=== PATIENT | female | born 1960 | race Caucasian/White ===

== ENCOUNTER 2017-08-26 10:21 | Observation (INO) ==
--- NOTE | 2017-08-26 10:49 | Emergency Department Note ---
Disposition Clinical Impression: Abdominal pain Qualifiers: Abdominal location: generalized Qualified Code(s): R10.84 - Generalized abdominal pain Disposition: Admitted As Inpatient Condition: Fair Abdominal Pain HPI - General Chief Complaint: ED Abdominal Pain Stated Complaint: ABD Pain N/V/D Time Seen by Provider: 08/26/17 10:32 Source: patient Mode of arrival: ambulatory Limitations: no limitations Nursing Notes Reviewed: Yes Vital Signs Reviewed: Yes - History of Present Illness HPI Narrative: 56-year-old who comes in complaining of generalized abdominal pain that seems to be getting worse. Patient was seen at outside facility on was diagnosed with diverticular disease and started on Cipro and Flagyl. Patient states she is not getting any better. Pt Subjective Complaint: abdominal pain Onset (ago): day(s) (Several) Consistency: constant Location: diffuse Pain Scale: 4 Quality: cramping Radiation: none Migration to: suprapubic Improves with: nothing Worsens with: nothing Associated symptoms: Reports: nausea, vomiting Treatments prior to arrival: other (Antibiotics) - Related Data Home Medications Medication Instructions Recorded Confirmed Aspirin [Lo-Dose Aspirin EC] 81 mg PO DAILY 08/22/17 08/26/17 Atorvastatin [Lipitor] 40 mg PO HS 08/22/17 08/26/17 Lisinopril [Zestril] 10 mg PO DAILY 08/22/17 08/26/17 Nicotine [Nicotine Patch] 1 patch TD DAILY 08/26/17 08/26/17 Previous Rx's Medication Instructions Recorded Ciprofloxacin [Cipro] 750 mg PO BID #20 tablet 08/22/17 HYDROcodone/Acet 10/325 mg [[place] 1 tab PO Q6HR PRN 3 Days #10 tab 08/22/17 10-325 mg] MetroNIDAZOLE [Flagyl] 500 mg PO QID #40 capsule 08/22/17 Ondansetron ODT [Zofran ODT] 4 mg PO Q8HR #14 tab.rapdis 08/22/17 Allergies Allergy/AdvReac Type Severity Reaction Status Date / Time codeine Allergy Hives Verified 08/26/17 13:51 Constitutional: Denies: fever, chills, weakness, weight change Eyes: Denies: eye pain, eye discharge, vision change ENT ED: Denies: ear pain, throat pain, dental pain, hearing loss, epistaxis, congestion, dysphagia Cardiovascular: Denies: chest pain, palpitations, dyspnea on exertion, edema, syncope Respiratory: Denies: cough, dyspnea, wheezes, hemoptysis, stridor Gastrointestinal: Reports: abdominal pain. Denies: nausea, vomiting, diarrhea, constipation, hematemesis, melena, hematochezia Genitourinary: Denies: dysuria, frequency, hematuria, discharge Musculoskeletal: Denies: back pain, neck pain, arthralgia, myalgia Integumentary: Denies: rash, abrasion, lesions Neurological: Denies: headache, weakness, numbness, paresthesias, confusion, abnormal gait, vertigo Psychiatric: Denies: anxiety, depression, suicidal thoughts, homicidal thoughts , auditory hallucinations, visual hallucinations Endocrine: Denies: fatigue Hematological/Lymphatic: Denies: easy bleeding, easy bruising Allergic/Immunologic: Denies: facial swelling, urticaria Abdominal Pain PMH - Past Medical History Medical history: Reports: hyperlipidemia, hypertension Female Surgical History: Reports: breast surgery, hysterectomy, sinus surgery, other Psychiatric history: Reports: no psych history - Social History Smoking status: Current every day smoker Alcohol use: Reports: none Drug use: Reports: none Physical Exam - General Limitations: no limitations General appearance: alert, in no apparent distress - Head Head exam: atraumatic, normocephalic, normal inspection - Eye Eye exam: Present: normal appearance, PERRL, EOMI - ENT ENT exam: normal exam, normal oropharynx, mucous membranes moist - Neck Neck exam: Present: normal inspection, full ROM, trachea midline - Chest Chest inspection: Present: normal inspection, symmetric chest wall rise - Respiratory Respiratory exam: Present: normal lung sounds bilaterally - Cardiovascular Cardiovascular exam: Present: regular rate, normal rhythm, normal heart sounds - Abdominal Exam Abdominal exam: Present: soft, tenderness. Absent: guarding, rebound Abdominal tenderness: Present: diffuse - Extremities Exam Extremities exam: Present: normal inspection, full ROM. Absent: tenderness, pedal edema - Expanded Lower Extremity Exam Neurovascular/Tendon exam: Absent: motor deficit, sensory deficit, tendon deficit Gait: observed and normal - Back Exam Back exam: Present: normal inspection, full ROM. Absent: tenderness - Neurological Exam Neurological exam: Present: alert, oriented X3 - Psychiatric Psychiatric exam: Present: normal affect, normal mood - Skin Skin exam: Present: warm, dry, intact, normal color Course Vital Signs Temperature 97.5 F L 03/12/18 10:23 Pulse Rate 89 08/26/17 10:23 Respiratory Rate 18 08/26/17 10:23 Blood Pressure 153/85 08/26/17 10:23 O2 Sat by Pulse Oximetry 97 08/26/17 10:23 Temperature 98.1 F 08/26/17 18:57 Pulse Rate 63 08/26/17 18:57 Respiratory Rate 14 08/26/17 18:57 Blood Pressure 122/76 08/26/17 18:57 O2 Sat by Pulse Oximetry 98 08/26/17 18:57 Oxygen Delivery Oxygen Delivery Room Air Abdominal Pain - Lab Data Lab results reviewed: Yes I reviewed the patient's lab results. Result diagrams: 08/26/17 11:00 08/26/17 11:00 Lab Results 08/26/17 08/26/17 08/26/17 Range/Units 11:00 11:00 11:00 WBC 11.9 H (4.3-11.1) K/mcL RBC 5.40 H (3.82-4.97) M/mcL Hgb 15.0 (11.5-15.4) g/dL Hct 46.7 H (35.3-44.9) % MCV 86.5 (83.0-100.0) fL MCH 27.8 L (28.0-33.3) pg MCHC 32.1 (31.6-35.5) g/dL RDW 13.9 (11.5-14.5) % Plt Count 311 (140-400) K/mcL MPV 8.9 L (9.4-12.4) fL Immature Gran % 0.3 (0-4) % Seg Neutrophils % 74.2 % Lymphocytes % 20.6 % Monocytes % 4.0 % Eosinophils % 0.6 % Basophils % 0.3 % Neutrophils # 8.8 (1.6-8.9) K/mcL Lymphocytes # 2.4 (0.6-4.6) K/mcL Monocytes # 0.5 (0.0-1.3) K/mcL Eosinophils # 0.1 (0.0-0.6) K/mcL Basophils # 0.0 (0.0-0.2) K/mcL Sodium 140 (136-145) mEq/L Potassium 3.8 (3.5-5.1) mEq/L Chloride 108 H (98-107) mEq/L Carbon Dioxide 24 (23-29) mEq/L BUN 10 (6-20) mg/dL Creatinine 0.59 L (0.60-1.20) mg/dL Est GFR ( Amer) > 60 (> 60) Est GFR (Non-Af Amer) > 60 (> 60) BUN/Creatinine Ratio 17 (6-26) Glucose 104 (70-105) mg/dL Calculated Osmolality 289 (280-300) Lactic Acid 0.9 (0.5-2.2) mmol/L Calcium 10.1 (8.6-10.3) mg/dL Total Bilirubin 0.3 (0.3-1.0) mg/dL Direct Bilirubin 0.1 (0.0-0.2) mg/dL Indirect Bilirubin 0.2 (0.0-1.2) mg/dL AST 24 (13-39) Units/L ALT 11 (7-52) Units/L Alkaline Phosphatase 85 (34-104) Units/L Serum Total Protein 7.5 (6.4-8.9) g/dL Albumin 4.9 (3.5-5.7) g/dL Globulin 2.6 (2.4-3.5) g/dL Albumin/Globulin Ratio 1.9 (1.1-2.2) Amylase 48 (29-103) Units/L Lipase 26 (11-82) Units/L Urine Color (Yellow) Urine Clarity (Clear) Urine pH (5.0-8.0) pH Units Ur Specific [place] (1.010-1.025) Urine Protein (Neg-Trace) mg/dL Urine Glucose (UA) (Normal) mg/dL Urine Ketones (Negative) mg/dL Urine Blood (Negative) Urine Nitrite (Negative) Urine Bilirubin (Negative) Urine Urobilinogen (Normal) mg/dL Ur Leukocyte Esterase (Negative) Ur Culture Indicated? (NO) 08/26/17 Range/Units 11:15 WBC (4.3-11.1) K/mcL RBC (3.82-4.97) M/mcL Hgb (11.5-15.4) g/dL Hct (35.3-44.9) % MCV (83.0-100.0) fL MCH (28.0-33.3) pg MCHC (31.6-35.5) g/dL RDW (11.5-14.5) % Plt Count (140-400) K/mcL MPV (9.4-12.4) fL Immature Gran % (0-4) % Seg Neutrophils % % Lymphocytes % % Monocytes % % Eosinophils % % Basophils % % Neutrophils # (1.6-8.9) K/mcL Lymphocytes # (0.6-4.6) K/mcL Monocytes # (0.0-1.3) K/mcL Eosinophils # (0.0-0.6) K/mcL Basophils # (0.0-0.2) K/mcL Sodium (136-145) mEq/L Potassium (3.5-5.1) mEq/L Chloride (98-107) mEq/L Carbon Dioxide (23-29) mEq/L BUN (6-20) mg/dL Creatinine (0.60-1.20) mg/dL Est GFR ( Amer) (> 60) Est GFR (Non-Af Amer) (> 60) BUN/Creatinine Ratio (6-26) Glucose (70-105) mg/dL Calculated Osmolality (280-300) Lactic Acid (0.5-2.2) mmol/L Calcium (8.6-10.3) mg/dL Total Bilirubin (0.3-1.0) mg/dL Direct Bilirubin (0.0-0.2) mg/dL Indirect Bilirubin (0.0-1.2) mg/dL AST (13-39) Units/L ALT (7-52) Units/L Alkaline Phosphatase (34-104) Units/L Serum Total Protein (6.4-8.9) g/dL Albumin (3.5-5.7) g/dL Globulin (2.4-3.5) g/dL Albumin/Globulin Ratio (1.1-2.2) Amylase (29-103) Units/L Lipase (11-82) Units/L Urine Color Yellow (Yellow) Urine Clarity Clear (Clear) Urine pH 7.5 (5.0-8.0) pH Units Ur Specific [place] 1.016 (1.010-1.025) Urine Protein Negative (Neg-Trace) mg/dL Urine Glucose (UA) Normal (Normal) mg/dL Urine Ketones Negative (Negative) mg/dL Urine Blood Negative (Negative) Urine Nitrite Negative (Negative) Urine Bilirubin Negative (Negative) Urine Urobilinogen Normal (Normal) mg/dL Ur Leukocyte Esterase Negative (Negative) Ur Culture Indicated? NO (NO) - Radiology Data Radiology results reviewed: Yes I reviewed the patient's radiology results. Abdomen/Pelvis CT 08/26/17 10:46 IMPRESSION: Changes from prior diverticulitis involving the sigmoid colon with no evidence for active diverticulitis or acute abnormality. D/ / 08/26/2017 11:17:02 Moy Young MD / ayah Interpreting Provider: Moy Young MD
[2017-08-26 11:15] LABS: Basophils % 0.3 %; Eosinophils # 0.1 K/mcL (0.0-0.6); Eosinophils % 0.6 %; Hematocrit 46.7 % (35.3-44.9); Immature Granulocytes % 0.3 % (0-4); Lymphocytes # 2.4 K/mcL (0.6-4.6); Lymphocytes % 20.6 %; Mean Corpuscular HGB Conc 32.1 g/dL (31.6-35.5); Mean Corpuscular Hemoglobin 27.8 pg (28.0-33.3); Mean Corpuscular Volume 86.5 fL (83.0-100.0); Mean Platelet Volume 8.9 fL (9.4-12.4); Monocytes # 0.5 K/mcL (0.0-1.3); Neutrophils # 8.8 K/mcL (1.6-8.9); Platelet Count 311 K/mcL (140-400); Red Cell Distribution Width 13.9 % (11.5-14.5); Segmented Neutrophils % 74.2 %
[2017-08-26 11:29] LABS: Bilirubin,Urine Negative (Negative); Blood,Urine Negative (Negative); Clarity,Urine Clear (Clear); Color,Urine Yellow (Yellow); Glucose,Urine (UA) Normal (Normal); Ketones,Urine Negative (Negative); Leukocyte Esterase,Urine Negative (Negative); Nitrite,Urine Negative (Negative); PH,Urine 7.5 pH Units (5.0-8.0); Protein,Urine Negative (Neg-Trace); Specific Gravity,Urine 1.016 (1.010-1.025); Urobilinogen,Urine Normal (Normal)
[2017-08-26 11:35] LABS: Alanine Aminotransferase 11 Units/L (7-52); Albumin 4.9 g/dL (3.5-5.7); Albumin/Globulin Ratio 1.9 (1.1-2.2); Alkaline Phosphatase 85 Units/L (34-104); Amylase 48 Units/L (29-103); Aspartate Amino Transferase 24 Units/L (13-39); BUN/Creatinine Ratio 17 (6-26); Bilirubin,Direct 0.1 mg/dL (0.0-0.2); Bilirubin,Indirect 0.2 mg/dL (0.0-1.2); Bilirubin,Total 0.3 mg/dL (0.3-1.0); Blood Urea Nitrogen 10 mg/dL (6-20); Calcium 10.1 mg/dL (8.6-10.3); Carbon Dioxide 24 mEq/L (23-29); Chloride 108 mEq/L (98-107); Globulin 2.6 g/dL (2.4-3.5); Glucose 104 mg/dL (70-105); Lipase 26 Units/L (11-82); Osmolality,Calculated 289 (280-300); Potassium 3.8 mEq/L (3.5-5.1); Sodium 140 mEq/L (136-145); Total Protein 7.5 g/dL (6.4-8.9); eGFR For African Americans > 60 (> 60); eGFR For Non-African Americans > 60 (> 60)
[2017-08-26] MEDS ORDERED: Piperacillin/Tazobactam 3.375 GM in 0.9 % Sodium Chloride Mini Bag 100 ML IVPB ONE (12:10)
[2017-08-26] MEDS ORDERED: Piperacillin/Tazobactam 3.375 GM in Water for inj. (sterile) 20 ML 20 ML IVPB ONE (12:45)
[2017-08-26] MEDS ORDERED: MetroNIDAZOLE 500 MG/100 ML 500 MG/100 ML BAG IVPB ONE (13:33)
--- NOTE | 2017-08-26 13:56 | Internal Med History&Physical ---
Date of Encounter: 08/26/17 Time of Encounter: 13:54 Assessment and Plan (1) HTN (hypertension) Current visit: Yes Status: Chronic Chronic resume home medication Qualifiers: Hypertension type: essential hypertension Qualified Code(s): I10 - Essential (primary) hypertension (2) Hyperlipidemia Current visit: Yes Status: Chronic Chronic resume home medication Qualifiers: Hyperlipidemia type: pure hypercholesterolemia Qualified Code(s): E78.00 - Pure hypercholesterolemia, unspecified; E78.0 - Pure hypercholesterolemia (3) Smoking Current visit: Yes Status: Chronic Chronic (4) Diverticulitis Current visit: No Status: Acute Diverticulitis involving the sigmoid colon patient will be started on IV Cipro and Flagyl (5) Abdominal pain Current visit: No Status: Acute Generalized abdominal pain no guarding Qualifiers: Abdominal location: generalized Qualified Code(s): R10.84 - Generalized abdominal pain Internal Medicine - H&P: HPI Chief complaint: abd pain Admitted From: Emergency Dept Plans for Post Hospital Care: Home History of present illness: Ms. Massey is a 56 year old female Patient with history of obesity, hypertension, high cholesterol, breast surgery , smoking history patient presented emergency room with abdominal pain which has been getting worse since was seen by primary physician started on the po Flagyl and Cipro the patient not getting better developed nausea vomiting and some chills and came into the emergency room white count was 11.9 CT consistent with diverticulitis involving the sigmoid colon patient been admitted for IV antibiotic abdomen is mildly tender no rebound Past Med Surg Social Fam HX - Past Medical History Medical history: hyperlipidemia, hypertension Psychiatric history: no psych history - Social History Smoking Status: Current every day smoker Smokeless Tobacco Status: No Alcohol use: none Drug use: none Internal Medicine - H&P: Meds Aspirin [Lo-Dose Aspirin EC] 81 mg PO DAILY 08/22/17 [History] Atorvastatin [Lipitor] 40 mg PO HS 08/22/17 [History] Ciprofloxacin [Cipro] 750 mg PO BID #20 tablet 08/22/17 [Rx] HYDROcodone/Acet 10/325 mg [[place] 10-325 mg] 1 tab PO Q6HR PRN 3 Days #10 tab [Rx] Lisinopril [Zestril] 10 mg PO DAILY 08/22/17 [History] MetroNIDAZOLE [Flagyl] 500 mg PO QID #40 capsule 08/22/17 [Rx] Ondansetron ODT [Zofran ODT] 4 mg PO Q8HR #14 tab.rapdis 08/22/17 [Rx] Nicotine [Nicotine Patch] 1 patch TD DAILY 08/26/17 [History] 3 Allergy/AdvReac Type Severity Reaction Status Date / Time codeine Allergy Hives Verified 08/26/17 13:51 All Systems PM: A 10-system review of systems was performed and is negative for pertinent findings except as documented above in the HPI. - Constitutional Constitutional: fatigue - EENT Eyes: no change in vision, no discharge, no pain, no photophobia Ears: no ear discharge, no ear pain, no tinnitus Nose, mouth and throat: no dysphagia, no nasal discharge, no neck pain, no sore throat - Cardiovascular Cardiovascular ROS IM: no chest pain, no diaphoresis, no dyspnea, no lightheadedness, no palpitations, no syncope - Respiratory Respiratory: no cough, no dyspnea, no wheezing, no excessive phlegm production - Gastrointestinal Gastrointestinal: abdominal pain, bloating - Genitourinary Genitourinary: no change in urinary stream, no dysuria, no flank pain, no hematuria - Musculoskeletal Musculoskeletal ROS IM: no numbness, no tingling - Constitutional Vitals: Temp Pulse Resp BP Pulse Ox 97.5 F L 89 18 153/85 97 08/26/17 10:23 08/26/17 10:23 08/26/17 10:23 08/26/17 10:23 08/26/17 10:23 - Eye Eye exam: Present: PERRL, conjuntiva pink, sclera anicteric Pupils: Present: PERRL - Neck Neck exam general surgery: Present: supple, trachea midline. Absent: lymphadenopathy - Respiratory Respiratory exam: Present: CTAB. Absent: accessory muscle use, rales, rhonchi, wheezes - Cardiovascular Cardiovascular exam: Present: RRR, +S1, +S2. Absent: diastolic murmur, gallop, rubs, systolic murmur - GI/Abdominal GI/Abdominal exam: Present: tenderness Internal Med - H&P Results - Labs CBC & Chem 7: 08/26/17 11:00 08/26/17 11:00 Labs: Short CBC 08/26/17 Range/Units 11:00 WBC 11.9 H (4.3-11.1) K/mcL Hgb 15.0 (11.5-15.4) g/dL Hct 46.7 H (35.3-44.9) % Plt Count 311 (140-400) K/mcL Neutrophils # 8.8 (1.6-8.9) K/mcL BMP 08/26/17 11:00 Sodium 140 Potassium 3.8 Chloride 108 H Carbon Dioxide 24 BUN 10 Creatinine 0.59 L Glucose 104 Calcium 10.1 Liver Function 08/26/17 Range/Units 11:00 Total Bilirubin 0.3 (0.3-1.0) mg/dL Direct Bilirubin 0.1 (0.0-0.2) mg/dL AST 24 (13-39) Units/L ALT 11 (7-52) Units/L Alkaline Phosphatase 85 (34-104) Units/L Albumin 4.9 (3.5-5.7) g/dL Urine 08/26/17 Range/Units 11:15 Urine Color Yellow (Yellow) Urine Clarity Clear (Clear) Urine pH 7.5 (5.0-8.0) pH Units Ur Specific [place] 1.016 (1.010-1.025) Urine Protein Negative (Neg-Trace) mg/dL Urine Glucose (UA) Normal (Normal) mg/dL - Impressions ITS Impressions Abdomen/Pelvis CT 08/26/17 10:46 IMPRESSION: Changes from prior diverticulitis involving the sigmoid colon with no evidence for active diverticulitis or acute abnormality. D/ / 08/26/2017 11:17:02 Moy Young MD / ayah Interpreting Provider: Moy Young MD
[2017-08-26] MEDS ORDERED: Naloxone 0.4 MG/ML INJ IVP PRN (14:01)
[2017-08-26] MEDS ORDERED: Acetaminophen 325 MG TABLET PO PRN (14:01)
[2017-08-26] MEDS ORDERED: Ondansetron 4 MG/2 ML VIAL IVP PRN (14:01)
[2017-08-26] MEDS ORDERED: *HR* HYDROcodone/Acet 10/325 mg TABLET PO PRN (14:04)
[2017-08-26] MEDS: 0.9 % Sodium Chloride 1,000 ML IVC SCH (16:28)
[2017-08-26] MEDS: MetroNIDAZOLE 500 MG/100 ML 500 MG/100 ML BAG IVPB SCH (20:02)
[2017-08-27 04:35] LABS: Hematocrit 41.3 % (35.3-44.9); Mean Corpuscular Hemoglobin 27.9 pg (28.0-33.3); Mean Corpuscular Volume 87.3 fL (83.0-100.0); Mean Platelet Volume 8.9 fL (9.4-12.4); Platelet Count 254 K/mcL (140-400); Red Blood Count 4.73 M/mcL (3.82-4.97)
[2017-08-27 04:37] LABS: Hemoglobin 13.2 g/dL (11.5-15.4)
[2017-08-27] MEDS: MetroNIDAZOLE 500 MG/100 ML 500 MG/100 ML BAG IVPB SCH ×3 (05:13→20:10)
[2017-08-27] MEDS: *HR* Enoxaparin 40 MG/0.4 ML SYRINGE SQ SCH (05:14)
[2017-08-27 05:18] LABS: Alanine Aminotransferase 9 Units/L (7-52); Albumin/Globulin Ratio 1.9 (1.1-2.2); Alkaline Phosphatase 68 Units/L (34-104); Aspartate Amino Transferase 21 Units/L (13-39); BUN/Creatinine Ratio 23 (6-26); Bilirubin,Total 0.4 mg/dL (0.3-1.0); Blood Urea Nitrogen 14 mg/dL (6-20); Carbon Dioxide 24 mEq/L (23-29); Chloride 108 mEq/L (98-107); Chol/HDL Ratio 2.5 (0-4.9); Cholesterol 112 mg/dL (< 200); Globulin 2.1 g/dL (2.4-3.5); Glucose 124 mg/dL (70-105); HDL Cholesterol 44 mg/dL (40-59); LDL Cholesterol,Calculated 57 mg/dL (0-99); Osmolality,Calculated 290 (280-300); Potassium 3.6 mEq/L (3.5-5.1); Sodium 139 mEq/L (136-145); Total Protein 6.1 g/dL (6.4-8.9); Triglycerides 56 mg/dL (< 150); eGFR For African Americans > 60 (> 60); eGFR For Non-African Americans > 60 (> 60)
[2017-08-27] MEDS: Aspirin Enteric Coated 81 MG Tablet PO SCH (08:28)
[2017-08-27] MEDS: Nicotine 21 MG PATCH.TD24 TD SCH (08:28)
[2017-08-27] MEDS: 0.9 % Sodium Chloride 1,000 ML IVC SCH (10:03)
--- NOTE | 2017-08-27 15:38 | Internal Med Progress Note ---
Date of Encounter: 08/27/17 Time of Encounter: 11:00 - Assessment and plan (1) Diverticulitis Current Visit: No Status: Acute Assessment and plan: -Patient still with abdominal pain this morning -CT of the abdomen showed persistent stranding seen along the region of the sigmoid colon from prior diverticulitis; no evidence for acute diverticulitis or any evidence for bowel obstruction. -Patient's leukocytosis has resolved and has been afebrile -Patient will remain nothing by mouth with IV fluids and reevaluate in the morning (2) HTN (hypertension) Current Visit: Yes Status: Chronic Assessment and plan: -Controlled; continue SARAHI inhibitor Qualifiers: Hypertension type: essential hypertension Qualified Code(s): I10 - Essential (primary) hypertension (3) Hyperlipidemia Current Visit: Yes Status: Chronic Assessment and plan: -Continue statin Qualifiers: Hyperlipidemia type: pure hypercholesterolemia Qualified Code(s): E78.00 - Pure hypercholesterolemia, unspecified; E78.0 - Pure hypercholesterolemia (4) Smoking Current Visit: Yes Status: Chronic Assessment and plan: Nicotine replacements offered (5) DVT prophylaxis Current Visit: Yes Status: Acute Assessment and plan: Subcutaneous Lovenox - Subjective Interval history: Patient reports of little improvement in her presenting symptoms of abdominal pain. She remains nothing by mouth with IV fluids. Patient has been afebrile and leukocytosis has resolved. - Constitutional Vitals: Temp Pulse Resp BP Pulse Ox 98.1 F 74 16 103/65 96 08/27/17 14:33 08/27/17 14:33 08/27/17 14:33 08/27/17 14:33 08/27/17 14:33 General appearance: Present: no acute distress - Respiratory Respiratory exam: Present: CTAB. Absent: accessory muscle use, rales, rhonchi, wheezes - Cardiovascular Cardiovascular exam: Present: RRR, +S1, +S2. Absent: diastolic murmur, gallop, rubs, systolic murmur - GI/Abdominal GI/Abdominal exam: Present: soft, tenderness (Generalized tenderness to palpation). Absent: distended Internal Medicine: Result - Labs CBC & Chem 7: 08/27/17 04:13 08/27/17 04:13 Labs: Short CBC 08/27/17 Range/Units 04:13 WBC 6.7 (4.3-11.1) K/mcL Hgb 13.2 D (11.5-15.4) g/dL Hct 41.3 (35.3-44.9) % Plt Count 254 (140-400) K/mcL BMP 08/27/17 04:13 Sodium 139 Potassium 3.6 Chloride 108 H Carbon Dioxide 24 BUN 14 Creatinine 0.62 Glucose 124 H Calcium 9.0 Liver Function 08/27/17 Range/Units 04:13 Total Bilirubin 0.4 (0.3-1.0) mg/dL AST 21 (13-39) Units/L ALT 9 (7-52) Units/L Alkaline Phosphatase 68 (34-104) Units/L Albumin 4.0 (3.5-5.7) g/dL Consult Discharge Plan - Plan Referrals: Temitope Richardson, [employer] [Primary Care Provider] -
[2017-08-28] MEDS: 0.9 % Sodium Chloride 1,000 ML IVC SCH ×2 (02:33→02:57)
[2017-08-28] MEDS: MetroNIDAZOLE 500 MG/100 ML 500 MG/100 ML BAG IVPB SCH ×3 (05:02→21:46)
[2017-08-28] MEDS: *HR* Enoxaparin 40 MG/0.4 ML SYRINGE SQ SCH (05:08)
[2017-08-28 08:06] LABS: Basophils # 0.1 K/mcL (0.0-0.2); Basophils % 0.8 %; Eosinophils # 0.1 K/mcL (0.0-0.6); Eosinophils % 1.8 %; Hematocrit 42.8 % (35.3-44.9); Hemoglobin 13.7 g/dL (11.5-15.4); Immature Granulocytes % 0.3 % (0-4); Lymphocytes # 2.1 K/mcL (0.6-4.6); Lymphocytes % 31.7 %; Mean Corpuscular Hemoglobin 27.8 pg (28.0-33.3); Mean Corpuscular Volume 86.8 fL (83.0-100.0); Monocytes # 0.5 K/mcL (0.0-1.3); Monocytes % 8.1 %; Neutrophils # 3.8 K/mcL (1.6-8.9); Platelet Count 261 K/mcL (140-400); Red Blood Count 4.93 M/mcL (3.82-4.97); Red Cell Distribution Width 13.6 % (11.5-14.5); Segmented Neutrophils % 57.3 %
[2017-08-28 08:34] LABS: BUN/Creatinine Ratio 24 (6-26); Blood Urea Nitrogen 14 mg/dL (6-20); Calcium 8.9 mg/dL (8.6-10.3); Carbon Dioxide 25 mEq/L (23-29); Chloride 114 mEq/L (98-107); Glucose 78 mg/dL (70-105); Osmolality,Calculated 285 (280-300); Potassium 3.8 mEq/L (3.5-5.1); Sodium 138 mEq/L (136-145); eGFR For African Americans > 60 (> 60); eGFR For Non-African Americans > 60 (> 60)
[2017-08-28] MEDS: Aspirin Enteric Coated 81 MG Tablet PO SCH (09:05)
[2017-08-28] MEDS: Nicotine 21 MG PATCH.TD24 TD SCH (09:06)
--- NOTE | 2017-08-28 18:46 | Internal Med Progress Note ---
Date of Encounter: 08/28/17 Time of Encounter: 11:00 - Assessment and plan (1) Diverticulitis Current Visit: No Status: Acute Assessment and plan: -Patient with improvement in abdominal discomfort so will start patient on clears and advance diet as tolerates -Will continue IV Cipro and IV Flagyl (2) HTN (hypertension) Current Visit: Yes Status: Chronic Assessment and plan: Controlled; continue home meds Qualifiers: Hypertension type: essential hypertension Qualified Code(s): I10 - Essential (primary) hypertension (3) Hyperlipidemia Current Visit: Yes Status: Chronic Assessment and plan: Continue statin Qualifiers: Hyperlipidemia type: pure hypercholesterolemia Qualified Code(s): E78.00 - Pure hypercholesterolemia, unspecified; E78.0 - Pure hypercholesterolemia (4) Smoking Current Visit: Yes Status: Chronic Assessment and plan: Nicotine replacements (5) DVT prophylaxis Current Visit: Yes Status: Acute Assessment and plan: Lovenox subcutaneous - Subjective Interval history: Patient reports of little improvement in her presenting symptoms of abdominal pain. Patient has been afebrile and leukocytosis has resolved. Will initiate clears today and advance diet as tolerated - Constitutional Vitals: Temp Pulse Resp BP Pulse Ox 97.6 F 84 14 137/74 96 08/28/17 15:05 08/28/17 15:05 08/28/17 15:05 08/28/17 15:05 08/28/17 15:05 General appearance: Present: no acute distress - Respiratory Respiratory exam: Present: CTAB. Absent: accessory muscle use, rales, rhonchi, wheezes - Cardiovascular Cardiovascular exam: Present: RRR, +S1, +S2. Absent: diastolic murmur, gallop, rubs, systolic murmur - GI/Abdominal GI/Abdominal exam: Present: tenderness Internal Medicine: Result - Labs CBC & Chem 7: 08/28/17 07:36 08/28/17 07:36 Labs: Short CBC 08/28/17 Range/Units 07:36 WBC 6.7 (4.3-11.1) K/mcL Hgb 13.7 (11.5-15.4) g/dL Hct 42.8 (35.3-44.9) % Plt Count 261 (140-400) K/mcL Neutrophils # 3.8 (1.6-8.9) K/mcL BMP 08/28/17 07:36 Sodium 138 Potassium 3.8 Chloride 114 H Carbon Dioxide 25 BUN 14 Creatinine 0.59 L Glucose 78 Calcium 8.9 Consult Discharge Plan - Plan Referrals: Temitope Richradson, FREDERIC [Primary Care Provider] -
[2017-08-29] MEDS: MetroNIDAZOLE 500 MG/100 ML 500 MG/100 ML BAG IVPB SCH (04:41)
[2017-08-29] MEDS: *HR* Enoxaparin 40 MG/0.4 ML SYRINGE SQ SCH (05:39)
[2017-08-29] MEDS: Aspirin Enteric Coated 81 MG Tablet PO SCH ×2 (07:52→08:14)
[2017-08-29 08:06] VITALS: BP 98/59
[2017-08-29] MEDS: Nicotine 21 MG PATCH.TD24 TD SCH (08:14)
--- NOTE | 2017-08-29 11:40 | Discharge Summary ---
- NOTES TO OUTPATIENT PROVIDER Notes to Outpatient Provider: follow-up with primary care provider for referral to GI for colonoscopy. Date of Encounter: 08/29/17 Time of Encounter: 10:00 - Discharge Diagnosis (1) Diverticulitis Priority: Primary Status: Acute (2) HTN (hypertension) Priority: Secondary Status: Chronic Qualifiers: Hypertension type: essential hypertension Qualified Code(s): I10 - Essential (primary) hypertension (3) Hyperlipidemia Priority: Secondary Status: Chronic Qualifiers: Hyperlipidemia type: pure hypercholesterolemia Qualified Code(s): E78.00 - Pure hypercholesterolemia, unspecified; E78.0 - Pure hypercholesterolemia (4) Smoking Priority: Secondary Status: Chronic Hospital course: Patient is a 56-year-old female with past medical history significant for hypertension and hyperlipidemia who presents to the ER on 08/26/17 due to abdominal pain and nausea/vomiting. Patient reported of a several day history of worsening abdominal pain and was started on oral Flagyl and Cipro by primary care physician but symptoms did not improve so she decided to come to the ER for evaluation. In the ER, CT of the abdomen was consistent with diverticulitis involving the sigmoid colon. Patient was admitted to medical surgical floor for treatment of diverticulitis. During patients hospital stay her symptoms resolved on IV Cipro/Flagyl and she was able to tolerate by mouth without abdominal discomfort. Patient will be discharged to continue a 10 day course of oral Cipro/Flagyl and to follow-up with primary care provider for referral to GI for colonoscopy. - Time Spent with Patient Total time spent providing and/or coordinating discharge services: Less than 30 minutes - Discharge Medications Prescriptions: Ciprofloxacin [Cipro] 750 mg PO BID 10 Days #20 tablet MetroNIDAZOLE [Flagyl] 500 mg PO QID 10 Days #40 capsule Home Medications: Aspirin [Lo-Dose Aspirin EC] 81 mg PO DAILY 08/22/17 [History] Atorvastatin [Lipitor] 40 mg PO HS 08/22/17 [History] HYDROcodone/Acet 10/325 mg [[place] 10-325 mg] 1 tab PO Q6HR PRN 3 Days #10 tab [Rx] Lisinopril [Zestril] 10 mg PO DAILY 08/22/17 [History] Ondansetron ODT [Zofran ODT] 4 mg PO Q8HR #14 tab.rapdis 08/22/17 [Rx] Nicotine [Nicotine Patch] 1 patch TD DAILY 08/26/17 [History] Ciprofloxacin [Cipro] 750 mg PO BID 10 Days #20 tablet 08/29/17 [Rx] Enoxaparin [Lovenox] 40 mg SQ 0600 syringe 08/29/17 [Rx] MetroNIDAZOLE [Flagyl] 500 mg PO QID 10 Days #40 capsule 08/29/17 [Rx] Allergies/Adverse Reactions: 3 Allergy/AdvReac Type Severity Reaction Status Date / Time codeine Allergy Hives Verified 08/26/17 13:51 Date of admission: 08/26/17 14:27 Primary care physician: Temitope Richardson CNP - Constitutional Vitals: Temp Pulse Resp BP Pulse Ox 98.0 F 69 14 98/59 95 08/29/17 08:02 08/29/17 08:02 08/29/17 08:02 08/29/17 08:02 08/29/17 08:02 General appearance: Present: no acute distress - Respiratory Respiratory exam: Present: CTAB. Absent: accessory muscle use, rales, rhonchi, wheezes - Cardiovascular Cardiovascular exam: Present: RRR, +S1, +S2. Absent: diastolic murmur, gallop, rubs, systolic murmur - GI/Abdominal GI/Abdominal exam: Present: normal bowel sounds, soft, no peritoneal signs. Absent: distended, tenderness - Patient Status Disposition: Home, Self-Care Condition: Fair - Discharge Instructions Follow Up With: Marcela Sorenson CNP [Advanced Practice Nurse] - 09/05/17 9:15 am Forms: Work/School Release
== END 2017-08-29 13:24 | disposition home or self-care (01) ==
LOC: 3ANU 10:21 → EMEROO 10:21 → 3ANU 15:01 → SUATTDRO 16:34
PROVIDERS: ADMIT Internal Medicine; ATTEND Hospitalist